=== PATIENT | male | born 1975 | race African-American/Black ===

== ENCOUNTER 2019-07-24 15:38 | Emergency (ER) | payer MEDICAID ==
[~2019-07-24] VITALS: Ht 182.9 cm; Wt 95.5 kg
[2019-07-24 16:00] LABS: GLUCOSE,POINT OF CARE 122 MG/DL (70-110)
[2019-07-24 16:52] LABS: APPEARANCE,URINE CLEAR (CLEAR); BILIRUBIN,URINE NEGATIVE (NEGATIVE); GLUCOSE, URINE (UA) NEGATIVE (NEGATIVE); KETONES,URINE NEGATIVE (NEGATIVE); LEUKOCYTE ESTERASE ,URINE NEGATIVE (NEGATIVE); NITRATE,URINE NEGATIVE (NEGATIVE); OCCULT BLOOD,URINE NEGATIVE (NEGATIVE); PROTEIN,URINE NEGATIVE (NEGATIVE)
[2019-07-24 17:08] VITALS: BP 121/81
== END 2019-07-24 17:09 | disposition home or self-care (01) ==
LOC: EMS 15:38
DX: R35.0 Frequency of micturition (principal); R20.2 Paresthesia of skin; F17.210 Nicotine dependence, cigarettes, uncomplicated
CPT/HCPCS: 99406